=== PATIENT | male | born 1950 | race Caucasian/White ===

== ENCOUNTER 2016-06-13 10:14 | Outpatient (CLI) | payer OTHER ==
[2016-05-09 15:13] VITALS: O2SAT 94
== END 2016-06-13 10:15 | disposition home or self-care (01) | DRG 561 ==
LOC: CONVCARE 10:14
PROVIDERS: ATTEND Orthopaedic Surgery
DX: S82.831D Other fracture of upper and lower end of right fibula, subsequent encounter for closed fracture with routine healing (principal)
CPT/HCPCS: 73610

== ENCOUNTER 2016-07-12 09:53 | Outpatient (CLI) | payer OTHER ==
[2016-05-09 15:13] VITALS: O2SAT 94
== END 2016-07-12 09:54 | disposition home or self-care (01) | DRG 561 ==
LOC: CONVCARE 09:53
PROVIDERS: ATTEND Orthopaedic Surgery
DX: S82.401D Unspecified fracture of shaft of right fibula, subsequent encounter for closed fracture with routine healing (principal)
CPT/HCPCS: 73610